=== PATIENT | female | born 1960 | race African-American/Black ===

== ENCOUNTER → 2016-05-02 | Outpatient (CLI) | payer MEDICARE, OTHER ==
[2016-01-19 10:23] VITALS: BP 154/74
[~2016-05-02] MED LIST: ALBU2.5V14 NEB; BUDE10.2 IH; CALC60CR2 TP; CARV12.52 PO; CARV6.252 PO; CLOB15CR2 TP; DICL100G7 TP; FENT1PAT92 TD; FURO20TA3 PO; FURO40TA4 PO; GABA-586 PO; GABA600T2 PO; HYDR25CA75 PO; HYDR453. TP; INSU100C SQ; INSU100I13 SQ; INSU200I SQ; LACT10SO26 PO; LEVO100T5 PO; LIRA0.6P2 SQ; LISI10TA2 PO; LISI2.5T PO; MELO-150 PO; META800T21 PO; METH-38 PO; METR60GE TP; MODA200T2 PO; MONT10TA9 PO; NALO0.4A3 IJ; NYST30PO9 TP; OMEP40CA5 PO; OXYC-250 PO; OXYC15TA60 PO; OXYC1TAB9 PO; OXYC5CAP3 PO; OXYC60TA7 PO; POLY119P19 PO; POTA20PA8 PO; PREG100C PO; PROAIR HFA8.5 GM INH; SPIR25TA PO; TIOT4MIS5 IH; TIZA4CAP3 PO; VALIUM10 MG PO; ZOLP10TA4 PO; [UNRECOGNIZED DRUG - CODE] PO
== END | disposition home or self-care (01) ==
LOC: PMGWOUND 13:55
PROVIDERS: ATTEND Emergency Medicine Undersea and Hyperbaric Medicine
DX: L89.312 Pressure ulcer of right buttock, stage 2 (principal); E11.40 Type 2 diabetes mellitus with diabetic neuropathy, unspecified; J44.9 Chronic obstructive pulmonary disease, unspecified; E78.00 Pure hypercholesterolemia, unspecified; E66.01 Morbid (severe) obesity due to excess calories; E03.9 Hypothyroidism, unspecified; M19.90 Unspecified osteoarthritis, unspecified site; F41.9 Anxiety disorder, unspecified; K21.9 Gastro-esophageal reflux disease without esophagitis; I11.0 Hypertensive heart disease with heart failure; I50.9 Heart failure, unspecified; F17.210 Nicotine dependence, cigarettes, uncomplicated; Z79.4 Long term (current) use of insulin
CPT/HCPCS: 99214

== ENCOUNTER → 2016-06-23 | Outpatient (CLI) | payer MEDICARE, OTHER ==
[2016-01-19 10:23] VITALS: BP 154/74
[~2016-06-23] MED LIST changes: +NYST15PO9 TP; -NYST30PO9 TP
== END | disposition home or self-care (01) ==
LOC: PMGWOUND 13:18
PROVIDERS: ATTEND Surgery
DX: L89.313 Pressure ulcer of right buttock, stage 3 (principal); I48.2 Chronic atrial fibrillation; E78.5 Hyperlipidemia, unspecified; I11.0 Hypertensive heart disease with heart failure; I50.9 Heart failure, unspecified; E03.9 Hypothyroidism, unspecified; F41.9 Anxiety disorder, unspecified; K21.9 Gastro-esophageal reflux disease without esophagitis; J44.9 Chronic obstructive pulmonary disease, unspecified; E78.00 Pure hypercholesterolemia, unspecified; M19.90 Unspecified osteoarthritis, unspecified site; E11.40 Type 2 diabetes mellitus with diabetic neuropathy, unspecified; E66.01 Morbid (severe) obesity due to excess calories; Z79.01 Long term (current) use of anticoagulants; Z79.4 Long term (current) use of insulin; F17.210 Nicotine dependence, cigarettes, uncomplicated; Z68.44 Body mass index [BMI] 60.0-69.9, adult
CPT/HCPCS: 99213

== ENCOUNTER → 2016-07-07 | Outpatient (CLI) | payer MEDICARE, OTHER ==
[2016-01-19 10:23] VITALS: BP 154/74
== END | disposition home or self-care (01) ==
LOC: PMGWOUND 13:24
PROVIDERS: ATTEND Emergency Medicine Undersea and Hyperbaric Medicine
DX: L89.313 Pressure ulcer of right buttock, stage 3 (principal); F41.9 Anxiety disorder, unspecified; I48.2 Chronic atrial fibrillation; J44.9 Chronic obstructive pulmonary disease, unspecified; K21.9 Gastro-esophageal reflux disease without esophagitis; E78.5 Hyperlipidemia, unspecified; I11.0 Hypertensive heart disease with heart failure; I50.9 Heart failure, unspecified; E66.01 Morbid (severe) obesity due to excess calories; E78.00 Pure hypercholesterolemia, unspecified; E11.40 Type 2 diabetes mellitus with diabetic neuropathy, unspecified; M19.90 Unspecified osteoarthritis, unspecified site; F17.210 Nicotine dependence, cigarettes, uncomplicated; Z79.01 Long term (current) use of anticoagulants
CPT/HCPCS: 99213

== ENCOUNTER → 2018-01-11 | Outpatient (CLI) | payer MEDICARE, OTHER ==
[2016-01-19 10:23] VITALS: BP 154/74
[~2018-01-11] MED LIST changes: +CARV12.511 PO; -CARV12.52 PO; +CARV6.2511 PO; -CARV6.252 PO; +DICL100G18 TP; -DICL100G7 TP; -GABA-586 PO; +GABA300C18 PO; -MELO-150 PO; +MELO15TA23 PO; +META-21 PO; -META800T21 PO; +MODA200T31 PO; -OXYC-250 PO; +OXYC-411 PO; -OXYC15TA60 PO; +OXYC15TA61 PO; +OXYC1TAB22 PO; -OXYC1TAB9 PO; +OXYC5CAP PO; -OXYC5CAP3 PO; +POTA20PA21 PO; -POTA20PA8 PO; -[UNRECOGNIZED DRUG - CODE] PO
--- NOTE | 2018-01-11 18:01 | KCIC ---
MRI of the cervical spine without contrast 01/11/2018 CLINICAL HISTORY: Neck pain which radiates down the left arm. TECHNIQUE: Unenhanced T1-weighted, T2-weighted and inversion recovery sagittal and T2-weighted axial images of the cervical spine were obtained. FINDINGS: Comparison study is dated 08/15/2013. Images from the study are degraded due to the patient's very large body habitus. Minimal lateral curvature of the cervical spine is seen convex to the left. There is straightening of the normal cervical lordosis. Degenerative signal changes are seen involving all of the disks of the cervical spine. Loss of height of the C5-6 disc is noted. Degenerative signal changes are seen within the marrow surrounding the C5-6 and C6-7 discs. No area of abnormal signal intensity is seen involving the cervical spinal cord. At the C2-3, C3-4 and C4-5 disc spaces there are minimal to mild generalized disc bulges. Degenerative changes are seen involving the uncovertebral and facet joints bilaterally. These findings do not result in significant central spinal canal or neural foraminal stenosis. At the C5-6 disc space there is a mild generalized disc bulge. Degenerative changes are seen involving the uncovertebral and facet joints, left greater than right. These findings do not result in significant central spinal canal stenosis. Mild left neural foraminal stenosis is seen. The right neural foramen is patent. At the C6-7 disc space there is a mild generalized disc bulge. Superimposed on this disc bulge is a focal central disc protrusion. This measures 4 mm in AP diameter. Degenerative changes are seen involving the uncovertebral and facet joints bilaterally. These findings when combined efface the anterior CSF resulting in mild central spinal canal stenosis without evidence of cord impingement. No neural foraminal stenosis is seen. At the C7-T1 disc space there is a mild generalized disc bulge. Degenerative changes are seen involving the facet joints bilaterally. These findings do not result in significant central spinal canal or neural foraminal stenosis. The degenerative changes at C6-7 have progressed slightly since the previous study. IMPRESSION: Degenerative changes are seen involving the cervical spine. These findings result in mild central spinal canal stenosis at C6-7 without evidence of cord impingement. Mild left neural foraminal stenosis is seen at C5-6. Electronically signed by: Ricky Solomon MD (01/11/2018 5:57 PM) [id number]
== END | disposition home or self-care (01) ==
LOC: KCIC MRI 15:07
DX: M48.02 Spinal stenosis, cervical region (principal); M50.323 Other cervical disc degeneration at C6-C7 level; M50.223 Other cervical disc displacement at C6-C7 level; R29.890 Loss of height
CPT/HCPCS: 72141

== ENCOUNTER → 2019-04-02 | Outpatient (CLI) | payer OTHER ==
[2016-01-19 10:23] VITALS: BP 154/74
[~2019-04-02] MED LIST changes: +ALBU2.5V8 INH; +ALBUTEROL SULFATE 2.5 MG/3 ML NEBU. NEB ONE; -GABA600T2 PO; +GABA600T7 PO; +MONT10TA49 PO; -MONT10TA9 PO; +OMEP40CA45 PO; -OMEP40CA5 PO; -PROAIR HFA8.5 GM INH
== END | disposition home or self-care (01) ==
LOC: PF 08:12
PROVIDERS: ATTEND Surgery
DX: J44.9 Chronic obstructive pulmonary disease, unspecified (principal)
CPT/HCPCS: 94640; J7613

== ENCOUNTER → 2019-04-02 | Outpatient (CLI) | payer OTHER ==
[2016-01-19 10:23] VITALS: BP 154/74
[~2019-04-02] MED LIST changes: -ALBUTEROL SULFATE 2.5 MG/3 ML NEBU. NEB ONE
== END | disposition home or self-care (01) ==
LOC: PF 08:00
PROVIDERS: ATTEND Surgery
DX: J44.9 Chronic obstructive pulmonary disease, unspecified (principal)
CPT/HCPCS: 94060